=== PATIENT | female | born 1980 | race Caucasian/White ===

== ENCOUNTER 2019-06-04 18:57 | Emergency (ER) | payer BC, OTHER ==
[2019-06-04 19:54] LABS: Absolute Lymphocytes (CBC) 2.2 K/uL (0.7-4.9); Basophils % 0.5 % (0-1.3); Hematocrit 43.4 % (36.0-45.0); Lymphocytes % 31.4 % (15.3-44.8); MPV 8.8 fL (7.6-11.3); RBC Red Blood Cell Count 4.85 M/uL (3.86-4.86)
[2019-06-04 20:01] LABS: Urine Blood TRACE (NEG); Urine Glucose NEGATIVE (NEG); Urine Protein NEGATIVE (NEG)
[2019-06-04 20:03] LABS: Protime INR 0.95
--- NOTE | 2019-06-04 20:09 | RAD REPORT ---
EXAM DESCRIPTION: Leonid Single View06/04/2019 7:58 pm CLINICAL HISTORY: Chest pain COMPARISON: 2011 FINDINGS: The lungs appear clear of acute infiltrate. The heart is normal size IMPRESSION: No acute abnormalities displayed
[2019-06-04 21:21] LABS: ALT/SGPT 57 U/L (12-78); AST/SGOT 22 U/L (15-37); Albumin 3.8 g/dL (3.4-5.0); Alkaline Phosphatase 51 U/L (45-117); BUN Blood Urea Nitrogen 20 mg/dL (7-18); Bicarbonate 30 mmol/L (21-32); Bilirubin Direct < 0.1 mg/dL (0-0.2); Bilirubin Total 0.4 mg/dL (0.2-1.0); Glucose Level 82 mg/dL (74-106); Magnesium 2.2 mg/dL (1.8-2.4); NT PRO-BNP 20 pg/mL (<125); Potassium 4.5 mmol/L (3.5-5.1); Protein, Total 7.1 g/dL (6.4-8.2); Sodium Level 142 mmol/L (136-145); Troponin (Emerg Dept Use Only) < 0.02 ng/mL (0.0-0.045)
[2019-06-04 21:53] LABS: T3 Free 2.36 pg/mL (2.18-3.98)
--- NOTE | 2019-06-04 21:54 | EDPHYS ---
Physician Documentation [facility] Name: Jolanta Hyatt Age: 39 yrs Sex: Female : 1980 Arrival Date: 06/04/2019 Time: 18:59 Bed 17 Private MD: None, None ED Physician Steven Daniel HPI: 06/04 19:35 This 39 yrs old Female presents to ER via Ambulatory with complaints of Chest cp Pain, Nausea, Shortness Of Breath. 19:35 The patient or guardian reports chest pain that is located primarily in the bilateral cp anterior chest. 19:35 Onset: last night. The pain does not radiate. Associated signs and symptoms: Pertinent cp positives: nausea, palpitations, shortness of breath. 19:35 The chest pain is described as a heaviness. cp 19:35 Duration: The patient or guardian reports a single episode, that is still ongoing, but cp improving. Modifying factors: The symptoms are alleviated by nothing. the symptoms are aggravated by nothing. Severity of pain: At its worst the pain was mild. 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 - Social history:: Smoking status: Patient/guardian denies using tobacco. - Ebola Screening: : Patient denies travel to an Ebola-affected area in the 21 days before illness onset. ROS: 19:40 Constitutional: Negative for fever, poor PO intake. cp 19:40 Eyes: Negative for injury, pain, redness, and discharge. cp 19:40 ENT: Negative for sore throat, difficulty swallowing, difficulty handling secretions. 19:40 Neck: Negative for pain with movement, pain at rest, stiffness. 19:40 Cardiovascular: Positive for chest pain, palpitations, Negative for edema. 19:40 Respiratory: Positive for shortness of breath, at rest. Negative for cough, wheezing. 19:40 Abdomen/GI: Negative for abdominal pain, nausea, vomiting, and diarrhea. 19:40 Back: Negative for pain at rest, pain with movement, radiated pain. 19:40 : Negative for urinary symptoms. 19:40 Skin: Negative for rash. 19:40 Neuro: Negative for altered mental status, dizziness, headache, syncope, weakness. 19:40 All other systems are negative. Exam: 19:36 ECG was reviewed by the Attending Physician. cp 19:45 Constitutional: The patient appears in no acute distress, alert, awake, cp non-diaphoretic, non-toxic, well developed, well nourished. 19:45 Head/Face: Normocephalic, atraumatic. cp 19:45 Eyes: Periorbital structures: appear normal, Conjunctiva: normal, no exudate, no injection, Sclera: no appreciated abnormality, Lids and lashes: appear normal, bilaterally. 19:45 ENT: External ear(s): are unremarkable, Nose: is normal, Mouth: Lips: moist, Oral mucosa: pink and intact, moist, Posterior pharynx: is normal, airway is patent, no erythema, no exudate, Voice: is normal. 19:45 Neck: ROM/movement: is normal, is supple, without pain, no range of motions limitations. 19:45 Chest/axilla: Inspection: normal, Palpation: is normal, no crepitus, no tenderness. 19:45 Cardiovascular: Rate: normal, Rhythm: regular, Heart sounds: murmur, not appreciated, rub, not appreciated, gallop, not appreciated, Edema: is not appreciated, JVD: is not appreciated. 19:45 Respiratory: the patient does not display signs of respiratory distress, Respirations: normal, no use of accessory muscles, no retractions, no splinting, no tachypnea, labored breathing, is not present, Breath sounds: are clear throughout, no decreased breath sounds, no stridor, no wheezing. 19:45 Abdomen/GI: Inspection: abdomen appears normal, Palpation: abdomen is soft and non-tender, in all quadrants. 19:45 Back: pain, is absent, ROM is normal. 19:45 Musculoskeletal/extremity: DVT Exam: No signs of deep vein thrombosis. 19:45 Skin: no rash present. 19:45 Neuro: Orientation: is normal, Mentation: is normal, Motor: moves all fours, strength is normal, Sensation: is normal. Vital Signs: 19:13 BP 115 / 61; Pulse 84; Resp 16; Temp 98.9; Pulse Ox 100% on R/A; Height 5 ft. 7 in. aj1 (170.18 cm) (R); Pain 3/10; 19:45 BP 133 / 91; Pulse 98; Resp 17; Pulse Ox 99% on R/A; rv 20:25 BP 98 / 53; Pulse 73; Resp 14; Pulse Ox 100% ; rv 21:44 BP 97 / 68; Pulse 71; Resp 18; Pulse Ox 98% on R/A; mg2 MDM: 19:20 Patient medically screened. cp 19:45 Differential diagnosis: abnormal EKG, acute myocardial infarction, cholecystitis, cp Cholelithiasis gastroesophageal reflux disease (GERD), myocarditis, pleurisy, pneumonia, pneumothorax, pulmonary embolus, stable angina, unstable angina. 21:51 The patient was given aspirin in the Emergency Department. cp 21:51 Data reviewed: vital signs, nurses notes, lab test result(s), EKG, radiologic studies, cp plain films. Test interpretation: by ED physician or midlevel provider: ECG, plain radiologic studies. Response to treatment: the patient's symptoms have markedly improved after treatment, and as a result, I will discharge patient. Special discussion: Based on the patient's history, exam, and Dx evaluation, there is no indication for emergent intervention or inpatient Tx. It is understood by the patient/guardian that if the Sx's persist or worsen they need to return immediately for re-evaluation. ED course: VSS. EKG and troponin negative. Symptoms improved. Low suspicion for pulmonary embolism. Will discharge to home for continued monitoring. 06/04 19:28 Order name: Basic Metabolic Panel cp 06/04 21:42 Interpretation: Normal except: BUN 20; GFR 65. cp 06/04 19:28 Order name: CBC with Diff; Complete Time: 20:34 cp 06/04 20:34 Interpretation: Reviewed. cp 06/04 19:28 Order name: LFT's cp 06/04 19:28 Order name: Magnesium cp 06/04 19:28 Order name: NT PRO-BNP cp 06/04 19:28 Order name: PT-INR; Complete Time: 20:34 cp 06/04 19:28 Order name: Troponin (emerg Dept Use Only) cp 06/04 21:43 Interpretation: Within normal limits. cp 06/04 19:28 Order name: XRAY Chest (1 view); Complete Time: 20:34 cp 06/04 20:34 Interpretation: Report review. cp 06/04 19:28 Order name: TSH cp 06/04 19:28 Order name: T3 Free cp 06/04 19:42 Order name: Urine Dipstick--Ancillary (enter results); Complete Time: 20:02 cm6 06/04 20:02 Interpretation: Normal except: UBLD TRACE. cp 06/04 19:42 Order name: Urine --Ancillary (enter results); Complete Time: 20:02 cm6 06/04 21:58 Order name: T4 Free EDMS 06/04 19:16 Order name: EKG; Complete Time: 19:16 cp 06/04 19:16 Order name: EKG - Nurse/Tech; Complete Time: 19:36 cp 06/04 19:28 Order name: Cardiac monitoring; Complete Time: 19:41 cp 06/04 19:28 Order name: IV Saline Lock; Complete Time: 19:41 cp 06/04 19:28 Order name: Labs collected and sent; Complete Time: 19:42 cp 06/04 19:28 Order name: O2 Per Protocol; Complete Time: 19:42 cp 06/04 19:28 Order name: O2 Sat Monitoring; Complete Time: 19:42 cp 06/04 19:28 Order name: Urine Dipstick-Ancillary (obtain specimen); Complete Time: 19:42 cp 06/04 19:28 Order name: Urine Test (obtain specimen); Complete Time: 19:42 cp EC:36 Rate is 74 beats/min. Rhythm is regular. IL interval is normal. QRS interval is normal. cp QT interval is normal. T waves are Flattened in lead aVL. Interpreted by me. Reviewed by me. Administered Medications: 22:11 Drug: Aspirin Chewable Tablet 324 mg Route: PO; rv 22:11 Follow up: Response: Medication administered at discharge. rv Disposition: 06/04/19 21:52 Discharged to Home. Impression: Other chest pain, Palpitations. - Condition is Stable. - Discharge Instructions: Nonspecific Chest Pain, Palpitations, Aspirin and Your Heart. - Medication Reconciliation Form, Thank You Letter, Antibiotic Education, Prescription Opioid Use form. - Follow up: Woody Zamora MD; When: 2 - 3 days; Reason: Recheck today's complaints. - Problem is new. - Symptoms have improved. Addendum: 06/06/2019 06:57 Co-signature as Attending Physician, Steven Daniel MD Available for consultation at p s1 all times. Signing chart for administrative purposes. Not an endorsement of care. . Signatures: Dispatcher [employer] Peggy Veliz RN RN aj1 Hernan Burks PA PA cp Steven Daniel MD MD ps1 Zeferino Jin RN RN rv Corrections: (The following items were deleted from the chart) 06/04 22:12 21:52 06/04/2019 21:52 Discharged to Home. Impression: Other chest pain; Palpitations. rv Condition is Stable. Forms are Medication Reconciliation Form, Thank You Letter, Antibiotic Education, Prescription Opioid Use. Follow up: Woody Zamora; When: 2 - 3 days; Reason: Recheck today's complaints. Problem is new. Symptoms have improved. cp
--- NOTE | 2019-06-04 21:54 | ER ---
Nurse's Notes [facility] Name: Jolanta Hyatt Age: 39 yrs Sex: Female : 1980 Arrival Date: 06/04/2019 Time: 18:59 Bed 17 Private MD: None, None Diagnosis: Other chest pain;Palpitations Presentation: 06/04 19:11 Presenting complaint: Patient states: Chest pain, nausea, and shortness of breath since aj1 last night. Denies cough, congestion, fever. Transition of care: patient was not received from another setting of care. Onset of symptoms was June 03, 2019. Risk Assessment: Do you want to hurt yourself or someone else? Patient reports no desire to harm self or others. Initial Sepsis Screen: Does the patient meet any 2 criteria? No. Patient's initial sepsis screen is negative. Does the patient have a suspected source of infection? No. Patient's initial sepsis screen is negative. Care prior to arrival: None. 19:11 Method Of Arrival: Ambulatory aj 19:11 Acuity: MILLIE 3 aj1 Triage Assessment: 19:13 General: Appears in no apparent distress. uncomfortable, Behavior is calm, cooperative, aj1 appropriate for age. Pain: Complains of pain in chest Pain currently is 3 out of 10 on a pain scale. Neuro: Level of Consciousness is awake, alert, obeys commands, Oriented to person, place, time, situation. Cardiovascular: Patient's skin is warm and dry. Respiratory: Airway is patent Respiratory effort is even, unlabored, Respiratory pattern is regular, symmetrical. 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 - Social history:: Smoking status: Patient/guardian denies using tobacco. - Ebola Screening: : Patient denies travel to an Ebola-affected area in the 21 days before illness onset. Screenin:44 Abuse screen: Denies threats or abuse. Denies injuries from another. Nutritional rv screening: No deficits noted. Tuberculosis screening: No symptoms or risk factors identified. Fall Risk None identified. Assessment: 19:42 General: Appears in no apparent distress. comfortable, Behavior is calm, cooperative. rv Pain: Denies pain. Neuro: Level of Consciousness is awake, alert, obeys commands, Oriented to person, place, time, situation. Cardiovascular: Reports palpitations. Cardiovascular: Rhythm is regular. Respiratory: Airway is patent. 20:20 Reassessment: Patient appears in no apparent distress at this time. No changes from rv previously documented assessment. patient denies nausea. tried to give Tylenol for the pain and PO challenge, patient refused. complaining of headache and pain when swallowing. REX Henderson talked to the patient regarding the blood results and scan result. Vital Signs: 19:13 BP 115 / 61; Pulse 84; Resp 16; Temp 98.9; Pulse Ox 100% on R/A; Height 5 ft. 7 in. aj1 (170.18 cm) (R); Pain 3/10; 19:45 BP 133 / 91; Pulse 98; Resp 17; Pulse Ox 99% on R/A; rv 20:25 BP 98 / 53; Pulse 73; Resp 14; Pulse Ox 100% ; rv 21:44 BP 97 / 68; Pulse 71; Resp 18; Pulse Ox 98% on R/A; mg2 ED Course: 18:59 Patient arrived in ED. es 18:59 None, None is Private Physician. es 19:12 Triage completed. aj1 19:13 Arm band placed on Patient placed in an exam room. aj1 19:15 Hernan Burks PA is PHCP. cp 19:15 Steven Daniel MD is Attending Physician. cp 19:18 Zeferino Jin RN is Primary Nurse. rv 19:42 Inserted saline lock: 20 gauge in right antecubital area, using aseptic technique. rv ,using aseptic technique. by Braden SARAVIA Blood collected. 19:45 XRAY Chest (1 view) In Process Unspecified. EDMS 19:46 Patient has correct armband on for positive identification. 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 Pulse rv ox on. NIBP on. 21:51 Woody Zamora MD is Referral Physician. cp 22:11 No provider procedures requiring assistance completed. IV discontinued, intact, rv bleeding controlled, No redness/swelling at site. Pressure dressing applied. Administered Medications: 22:11 Drug: Aspirin Chewable Tablet 324 mg Route: PO; rv 22:11 Follow up: Response: Medication administered at discharge. rv Outcome: 21:52 Discharge ordered by MD. cp 22:12 Discharged to home ambulatory, with family. rv 22:12 Condition: good 22:12 Discharge instructions given to patient, Instructed on discharge instructions, follow up and referral plans. Demonstrated understanding of instructions, follow-up care. 22:12 Patient left the ED. rv Signatures: Dispatcher [employer] Peggy Veliz RN RN aj1 Danita Kruger Corey, PA PA cp Braden Tejeda, RN RN mg2 Zeferino Jin RN RN rv
[2019-06-04] MEDS ORDERED: ASPIRIN 81 MG CHEWABLE TABLET ONE (21:59)
[2019-06-04 23:23] VITALS: TEMP 98.9
[2019-06-04 23:28] VITALS: BP 97/68; O2SAT 98
--- NOTE | 2019-06-05 14:52 | EKG ---
Test Date: 2019-06-04 Test Time: 19:31:44 Die Setter: RV MEASUREMENT RESULTS: Intervals: Rate: 74 NE: 130 QRSD: 86 QT: 372 QTc: 412 [place]: P: 75 NE: 130 QRS: 60 T: 62 INTERPRETIVE STATEMENTS: Normal sinus rhythm Normal ECG Compared to ECG 10/08/2011 10:11:05 Sinus bradycardia no longer present Electronically Signed On 06-05-19 14:50:21 SECOND BALLER by Oscar Zapata
== END 2019-06-04 22:12 | disposition home or self-care (01) ==
LOC: ER 18:57
DX: R00.2 Palpitations (principal)
CPT/HCPCS: 36415; 71045; 80048; 80076; 81003; 81025; 83735; 83880; 84439; 84443; 84481; 84484; 85025; 85610; 93005; 99284

== ENCOUNTER 2024-10-20 19:51 | Emergency (ER) | payer BC, OTHER ==
--- OUTSIDE RECORDS SUMMARY | 2024-10-20 19:54 | XMS REPORT | Continuity of Care Document ---
Author Name Unknown Address [address] [place] [address] [address] [place] [address] [facility] Address [address] [facility] [address] [place] [address] Care Team Providers Care Bathing Suit Maker Name Role Phone WATERS_S Attending Clinician Unavailable WATERS_S Admitting Clinician Unavailable Payers Payer Name Policy Type Policy Number Effective Date Expirati on Date Source [facility] [id number] 2018 00:00:00 Encounters Start Date/Time End Date/Time Encounter Type Admission Type Attending Clinicians Care Facility Care Department Encounter ID Source 2021-04-17 10:45:00 2021-04-17 10:45:00 Outpatient [facility] [id number] [facility] 2021-04-16 10:23:00 2021-04-16 10:23:00 Outpatient [facility] [id number] [facility]
[2024-10-20] MEDS ORDERED: NA CHLORIDE 0.9% 1,000 ML ONE (20:07)
[2024-10-20 20:45] LABS: Absolute Basophils 0.1 K/uL (0-0.5); Absolute Eosinophils 0.1 K/uL (0-0.5); Absolute Lymphocytes (CBC) 2.5 K/uL (0.7-4.9); Absolute Monocytes 0.4 K/uL (0.1-1.3); Absolute Neutrophil 4.7 K/uL (1.8-8.0); Basophils % 1.2 % (0-1.3); Eosinophils % 1.3 % (0-4.4); Hematocrit 41.5 % (36.0-45.0); Hemoglobin 14.1 g/dL (12.0-15.0); Lymphocytes % 32.7 % (15.3-44.8); MCH 30.5 pg (27.0-35.0); MCV 89.8 fL (80-100); MPV 8.5 fL (7.6-11.3); Neutrophils % 59.8 % (41.7-73.7); Nucleated Red Blood Cells % 0.1 % (0-0); Platelets 285 thou/uL (152-406); RBC Red Blood Cell Count 4.63 M/uL (3.86-4.86); Red Cell Distribution Width 12.5 % (12.1-15.2)
[2024-10-20 20:55] LABS: PT Prothrombin Time 10.7 SECONDS (10-13.0); PTT, Activated Partial Thromb 26.8 SECONDS (27.2-37.4); Protime INR 0.94
[2024-10-20 21:03] LABS: ALT/SGPT 20 U/L (13-56); Albumin 4.1 g/dL (3.4-5.0); Albumin/Globulin Ratio 1.3 (1.1-1.8); Alkaline Phosphatase 57 U/L (45-117); Anion Gap 9.2 mEq/L (5.0-15.0); BUN Blood Urea Nitrogen 14 mg/dL (7-18); Bicarbonate 26 mEq/L (21-32); Bilirubin Total 0.4 mg/dL (0.2-1.0); Globulin 3.2 g/dL (2.3-3.5); Glomerular Filtration Rate 88 ml/min (=/>90); Glucose Level 157 mg/dL (74-106); Potassium 3.2 mEq/L (3.5-5.1); Protein, Total 7.3 g/dL (6.4-8.2); Sodium Level 137 mEq/L (136-145)
[2024-10-20 21:05] LABS: AST/SGOT < 10 U/L (15-37); Bilirubin Direct < 0.2 mg/dL (0-0.2); Bilirubin Indirect, Calculated 0.2 mg/dL (0.2-0.8)
--- NOTE | 2024-10-20 22:09 | ER ---
Nurse's Notes [facility] Name: Jolanta Hyatt Age: 44 yrs Sex: Female : 1980 Arrival Date: 10/20/2024 Time: 19:51 Bed 19 Private MD: Diagnosis: Adverse effect of other psychostimulants Presentation: 10/20 19:57 Chief complaint: Spouse and/or significant other states: she took half of the gummy and rg5 after a while she doesn't feel good, she was throwing up on the way here. 19:57 Coronavirus screen: Client denies travel out of the [place] in the last 14 days. Ebola rg5 Screen: Patient negative for fever greater than or equal to 101.5 degrees Fahrenheit, and additional compatible Ebola Virus Disease symptoms Patient denies exposure to infectious person. Patient denies travel to an Ebola-affected area in the 21 days before illness onset. Initial Sepsis Screen: Does the patient meet any 2 criteria? No. Patient's initial sepsis screen is negative. Does the patient have a suspected source of infection? No. Patient's initial sepsis screen is negative. Risk Assessment: Do you want to hurt yourself or someone else? Patient reports no desire to harm self or others. Onset of symptoms was October 20, 2024. 19:57 Method Of Arrival: Wheelchair rg5 19:57 Acuity: MILLIE 3 rg5 Triage Assessment: 19:57 General: Appears uncomfortable, Behavior is anxious, crying. General:. Pain: Denies rg5 pain. EENT: No deficits noted. Neuro: Level of Consciousness is awake, confused. Cardiovascular: Patient's skin is warm and dry. Rhythm is sinus rhythm. Respiratory: Airway is patent Trachea midline Respiratory effort is even, unlabored, Respiratory pattern is regular, symmetrical, Breath sounds are clear bilaterally. GI: Abdomen is flat, non-distended, Abd is soft and non tender. GI: Parent/caregiver reports the patient having vomiting. : No signs and/or symptoms were reported regarding the genitourinary system. Derm: Skin is intact, Skin is dry, Skin is normal, Skin temperature is warm. 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 - Infectious Disease History:: Denies. - Family history:: not pertinent. - Social history:: Smoking status: Patient denies any tobacco usage or history of. - Hospitalizations: : No recent hospitalization is reported. Screenin:00 [facility] ED Fall Risk Assessment (Adult) History of falling in the last 3 months, rg5 including since admission No falls in past 3 months (0 pts) Confusion or Disorientation No (0 pts) Intoxicated or Sedated No (0 pts) Impaired Gait No (0 pts) Mobility Assist Device Used No (0 pt) Altered Elimination No (0 pt) Score/Fall Risk Level 0 - 2 = Low Risk Oriented to surroundings, Maintained a safe environment, Hourly rounding (assess needs \\T\\ fall precautionary measures) done. 20:00 Abuse screen: Denies threats or abuse. Nutritional screening: No deficits noted. rg5 Tuberculosis screening: No symptoms or risk factors identified. Assessment: 20:00 General: Appears uncomfortable, Behavior is anxious, crying. Neuro: Level of rg5 Consciousness is awake, confused. 21:31 Reassessment: Patient and/or family updated on plan of care and expected duration. Pain rg5 level reassessed. Patient is alert, oriented x 3, equal unlabored respirations, skin warm/dry/pink. Patient states feeling better. 22:08 General: Appears in no apparent distress. comfortable, Behavior is calm, cooperative, rg5 appropriate for age. Neuro: Level of Consciousness is awake, alert, obeys commands, Oriented to person, place, time, situation, Appropriate for age. Cardiovascular: Denies chest pain. Respiratory: Airway is patent Trachea midline. Overdose: 20:58 [place] Suicide Severity Screening: "In the past month, have you wished you were rg5 or wished you could go to sleep and not wake up?" Patient responds "yes." Based off client's responses, additional C-SSRS screening questions required. 22:07 [place] Suicide Severity Screening: "In the past month, have you wished you were rg5 or wished you could go to sleep and not wake up?" Patient responds "no." "In the past month, have you actually had any thoughts of killing yourself?" Patient responds "no." Patient responds "yes." Based off client's responses, additional C-SSRS screening questions required. "In your lifetime, have you ever done anything, started to do anything, or prepared to do anything to end your life?" Patient responds "no.". Vital Signs: 19:57 BP 113 / 62; Pulse 76; Resp 20; Temp 98(A); Pulse Ox 100% on R/A; Weight 54.43 kg; rg5 Height 5 ft. 8 in. ; Pain 0/10; 20:30 BP 116 / 53; Pulse 77; Resp 18; Pulse Ox 100% on R/A; rg5 21:30 BP 109 / 52; Pulse 60; Resp 18; Pulse Ox 100% ; Pain 0/10; rg5 22:09 BP 101 / 58; Pulse 72; Resp 18; Pulse Ox 100% ; Pain 0/10; rg5 19:57 Body Mass Index 18.25 (54.43 kg, 172.72 cm) rg5 19:57 Pain Scale: Adult rg5 21:30 Pain Scale: Adult rg5 22:09 Pain Scale: Adult rg5 ED Course: 19:52 Patient arrived in ED. jj6 19:57 Eriberto Sánchez MD is Attending Physician. rn 19:57 Arm band placed on right wrist. EKG completed in triage. Results shown to MD. rg5 20:00 Patient has correct armband on for positive identification. Bed in low position. Side rg5 rails up X2. Adult w/ patient. Client placed on continuous cardiac and pulse oximetry monitoring. NIBP monitoring applied. campus monitor on. Pulse ox on. NIBP on. Door closed. Noise minimized. 20:00 No provider procedures requiring assistance completed. rg5 20:00 Inserted saline lock: 20 gauge in right antecubital area, using aseptic technique. rg5 Blood collected. Flushed with 10 mL NS. Patient maintains SpO2 saturation greater than 95% on room air. 20:11 Riley Hughes, MANJIT is Primary Nurse. rg5 20:47 Triage completed. rg5 22:11 Provided Education on: post er care. rg5 22:11 IV discontinued, bleeding controlled, No redness/swelling at site. Pressure dressing rg5 applied. Administered Medications: 20:16 Drug: NS 0.9% IV 1000 ml IV at 1000 ml once; to be given as a bolus over 60 minutes rg5 Route: IV; Rate: 1000 ml; Site: right antecubital; 22:10 Follow up: IV Status: Completed infusion; IV Intake: 1000ml rg5 Medication: 20:58 VIS not applicable for this client. rg5 Intake: 22:10 IV: 1000ml; Total: 1000ml. rg5 Outcome: 22:09 Discharge ordered by . rn 22:30 Discharged to home ambulatory, rg5 22:30 Condition: stable 22:30 Discharge instructions given to patient, family, Instructed on discharge instructions, Demonstrated understanding of instructions, 22:31 Patient left the ED. rg5 Signatures: Eriberto Sánchez MD MD rn Jeffries, Jennifer jj6 Gallardo, Rommel, RN RN rg5
--- NOTE | 2024-10-20 22:09 | EDPHYS ---
Physician Documentation [facility] Name: Jolanta Hyatt Age: 44 yrs Sex: Female : 1980 Arrival Date: 10/20/2024 Time: 19:51 Bed 19 Private MD: ED Physician Eriberto Sánchez HPI: 10/20 20:02 This 44 yrs old Female presents to ER via Unassigned with complaints of Drug Abuse, rn Altered Mental Status. 20:02 The patient presents with decreased responsiveness. Onset: The symptoms/episode rn began/occurred at an unknown time. Per significant other, patient took unknown amount of Gummies containing delta 6/delta 8/delta 9 THC. Significant other was not in the room when I went in there, report was given to me secondary from nurse because patient crying and not giving much information. Patient denies intent to hurt herself. She states she did not take the entire bottle but cannot tell me exactly how many Gummies.. CLINICAL FELLOW: 19:57 LMP N/A - , Not rg5 Historical: - Allergies: 19:57 No Known Allergies; rg5 - Home Meds: 19:57 None [Active]; rg5 - PMHx: 19:57 None; rg5 - Immunization history:: Adult Immunizations not up to date. - Infectious Disease History:: Denies. - Family history:: not pertinent. - Social history:: Smoking status: Patient denies any tobacco usage or history of. - Hospitalizations: : No recent hospitalization is reported. ROS: 20:02 Constitutional: Negative for fever, chills, and weight loss, ENT: Negative for injury, rn pain, and discharge, Neck: Negative for injury, pain, and swelling, Cardiovascular: Negative for chest pain, palpitations, and edema, Respiratory: Negative for shortness of breath, cough, wheezing, and pleuritic chest pain, Abdomen/GI: Negative for abdominal pain, nausea, vomiting, diarrhea, and constipation, Back: Negative for injury and pain, MS/Extremity: Negative for injury and deformity, Skin: Negative for injury, rash, and discoloration, Neuro: Negative for headache, weakness, numbness, tingling, and seizure, Exam: 20:02 Constitutional: This is a well developed, well nourished patient who is awake, alert, rn crying but consolable Head/Face: Normocephalic, atraumatic. Eyes: Pupils equal round and reactive to light, extra-ocular motions intact. Lids and lashes normal. Conjunctiva and sclera are non-icteric and not injected. Cornea within normal limits. Periorbital areas with no swelling, redness, or edema. Cardiovascular: Tachycardic, regular. No pulse deficits. Respiratory: Hyperventilating and crying Abdomen/GI: Soft, non-tender Skin: No cyanosis or lesions MS/ Extremity: Pulses equal, no cyanosis Neuro: Awake and alert, GCS 15, moves all 4 extremities, follows commands 20:59 ECG was reviewed by the Attending Physician. rn Vital Signs: 19:57 BP 113 / 62; Pulse 76; Resp 20; Temp 98(A); Pulse Ox 100% on R/A; Weight 54.43 kg; rg5 Height 5 ft. 8 in. ; Pain 0/10; 20:30 BP 116 / 53; Pulse 77; Resp 18; Pulse Ox 100% on R/A; rg5 21:30 BP 109 / 52; Pulse 60; Resp 18; Pulse Ox 100% ; Pain 0/10; rg5 22:09 BP 101 / 58; Pulse 72; Resp 18; Pulse Ox 100% ; Pain 0/10; rg5 19:57 Body Mass Index 18.25 (54.43 kg, 172.72 cm) rg5 19:57 Pain Scale: Adult rg5 21:30 Pain Scale: Adult rg5 22:09 Pain Scale: Adult rg5 MDM: 19:57 Medical Screening Exam initiated rn 21:40 ED course: Patient doing much better, no longer crying, spouse is in room and confirms rn story that she took gummy and states she did not take anything else. This was first time taking this gummy and he thinks she had a bad reaction.. 22:08 Differential Diagnosis: Accidental overdose, adverse effect of THC. Data reviewed: rn vital signs, nurses notes, lab test result(s), EKG, and as a result, I will discharge patient. Counseling: I had a detailed discussion with the patient and/or guardian regarding the historical points, exam findings, and any diagnostic results supporting the discharge/admit diagnosis, lab results, the need for outpatient follow up, to return to the emergency department if symptoms worsen or persist or if there are any questions or concerns that arise at home. Response to treatment: the patient's symptoms have markedly improved after treatment, the patient's condition has returned to base line, the patient is now symptom free, and as a result, I will discharge patient. Special discussion: I discussed with the patient/guardian in detail that at this point there is no indication for admission to the hospital. It is understood, however, that if the symptoms persist or worsen the patient needs to return immediately for re-evaluation. ED course: Patient doing much better, back to baseline and requesting to go home. Stable vital signs. Recommended cessation of involved gummy. Return precautions given and understood. Family in room and agrees back to normal and would like to take her home as well.. 10/20 20:37 Order name: Glucose, Ancillary Testing; Complete Time: 22:08 EDNV 10/20 20:41 Order name: Basic Metabolic Panel; Complete Time: 22:08 EDNV 10/20 20:41 Order name: Liver (Hepatic) Function; Complete Time: 22:08 EDNV 10/20 20:41 Order name: Alcohol Serum/Plasma; Complete Time: 22:08 EDNV 10/20 20:41 Order name: Salicylates Level; Complete Time: 22:08 EDNV 10/20 20:41 Order name: CBC with Automated Diff; Complete Time: 22:08 EDNV 10/20 20:41 Order name: Protime (+INR); Complete Time: 22:08 EDNV 10/20 20:41 Order name: PTT, Activated Partial Thromb; Complete Time: 22:08 EDNV 10/20 20:00 Order name: EKG; Complete Time: 20:38 rn 10/20 20:00 Order name: EKG - Nurse/Tech; Complete Time: 20:34 rn 10/20 20:00 Order name: IV Saline Lock; Complete Time: 20:20 rn 10/20 20:00 Order name: Labs collected and sent; Complete Time: 20:34 rn 10/20 20:00 Order name: Glucose Level; Complete Time: 20:19 rn EC:59 Rate is 72 beats/min. Rhythm is regular. QRS [place] is Normal. HI interval is normal. QRS rn interval is normal. QT interval is normal. No Q waves. T waves are Normal. No ST changes noted. Clinical impression: Normal ECG. Interpreted by me. Reviewed by me. Administered Medications: 20:16 Drug: NS 0.9% IV 1000 ml IV at 1000 ml once; to be given as a bolus over 60 minutes rg5 Route: IV; Rate: 1000 ml; Site: right antecubital; 22:10 Follow up: IV Status: Completed infusion; IV Intake: 1000ml rg5 Disposition Summary: 10/20/24 22:09 Discharge Ordered Notes: Location: Home rn Problem: new rn Symptoms: have improved rn Condition: Stable rn Diagnosis - Adverse effect of other psychostimulants rn Followup: rn - With: Private Physician - When: As needed - Reason: Recheck today's complaints, Re-evaluation by your physician Forms: - Medication Reconciliation Form rn - Antibiotic 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 BERYLNV SELENE
[2024-10-20 22:47] VITALS: TEMP 98; O2SAT 100
[2024-10-20 22:55] VITALS: BP 101/58
== END 2024-10-20 22:31 | disposition home or self-care (01) ==
LOC: ER 19:51
DX: R41.82 Altered mental status, unspecified (principal); T43.695A Adverse effect of other psychostimulants, initial encounter
CPT/HCPCS: 85025; 80048; 36415; 85610; 82947; 80076; 85730; 80179; 82077; J7030; 93005